=== PATIENT | female | born 1955 | race Caucasian/White ===

== ENCOUNTER 2017-05-17 12:55 | Inpatient (IN) | payer MEDICARE, OTHER ==
[~2017-05-17] VITALS: Ht 170.2 cm; Wt 72.6 kg
[~2017-05-17 12:55] MED LIST: ASPIR 8181 MG PO; ATORVASTATIN CA40 MG PO; CARVEDILOL12.5 MG PO; CYMBALTA30 MG PO; DOC-Q-LACE100 MG PO; LISINOPRIL20 MG PO; MOBIC7.5 MG PO; NEURONTIN 300300 M1 PO; NITROGLYCERIN0.4 MG SUBLING; PLAVIX 75 MG TA75 M1 PO; PREMARIN1.25 MG PO; PROTONIX40 M1 PO; ROBAXIN 750 MG750 M1 PO; TRAMADOL 50 MG50 MG PO; TRIAMTERENE/HCT1 CA1 PO; VOLTAREN GEL 1100 G1 TOP
[2017-05-17 13:00] VITALS: BP 133/61
[2017-05-17 13:18] LABS: ABSOLUTE BASOPHILS 0.2 thou/uL (0.0-0.2); ABSOLUTE EOSINOPHILS 0.1 thou/uL (0.0-0.7); ABSOLUTE MONOCYTES 1.1 thou/uL (0.0-1.2); ABSOLUTE NEUTROPHILS 8.8 thou/uL (1.6-8.1); BASOPHILS 1.3 %; EOSINOPHILS 0.6 %; HEMATOCRIT 43.3 % (37.0-47.0); HEMOGLOBIN 14.8 gm/dL (12.0-15.0); LYMPHOCYTES 40.5 %; MCH 30.4 pg (26.0-34.0); MCHC 34.2 g/dL (28.0-37.0); MONOCYTES 6.1 %; MPV 7.8 fl. (7.2-11.1); NUCLEATED RBCS 0 /100WBC; PLATELET COUNT* 360 thou/uL (150-400); POLYS 51.5 %; RBC 4.86 mil/uL (4.20-5.00); RDW-CV 16.6 % (10.5-14.5); WBC 17.2 thou/uL (4.0-11.0)
[2017-05-17 13:25] LABS: ANION GAP 9 mmol/L (7-16); BUN 21 mg/dL (7-18); CHLORIDE 102 mmol/L (98-107); CO2 27 mmol/L (21-32); CREATININE 1.3 mg/dL (0.6-1.3); GLUCOSE 92 mg/dL (70-99); POTASSIUM 3.7 mmol/L (3.5-5.1); SODIUM 138 mmol/L (136-145)
[2017-05-17 13:27] LABS: PROTIME 9.4 Seconds (9.20-11.50)
[2017-05-17] MEDS ORDERED: MEDROLDOSEPACK PO (13:29)
[2017-05-17 13:36] LABS: ALBUMIN 3.6 g/dL (3.4-5.0); ALKALINE PHOSPHATASE 110 U/L (46-116); LIPASE 386 U/L (73-393); NT-PRO BRAIN NAT PEPTIDE 205 pg/mL (<300); SGOT 17 U/L (15-37); SGPT 25 U/L (30-65); TOTAL BILIRUBIN 0.2 mg/dL (<0.1-1.0); TOTAL PROTEIN 7.7 g/dL (6.4-8.2); TROPONIN-I LEVEL <0.06 ng/mL (<0.06)
[2017-05-17 16:21] LABS: HEMOGLOBIN 13.5 gm/dL (12.0-15.0); MCH 30.1 pg (26.0-34.0); MCHC 33.8 g/dL (28.0-37.0); MPV 7.6 fl. (7.2-11.1); RBC 4.49 mil/uL (4.20-5.00); RDW-CV 16.6 % (10.5-14.5); WBC 17.7 thou/uL (4.0-11.0)
[2017-05-17 16:41] VITALS: BP 112/42
[2017-05-17 17:12] VITALS: BP 100/44
--- NOTE | 2017-05-17 17:32 | EKG ---
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
--- NOTE | 2017-05-17 18:25 | NUR ---
PT ADMITTED TO UNIT AROUND 1700 PT IS ALERT AND ORIENTED X 4 PT IS UP AD BARBARA PT IS NOT A FALL RISK, PT DENIES PAIN OR SOA PT DENIES CHEST PAIN, PT IS RA, PT IS SR ON MONITOR, STARTED HEPARIN DRIP AT 9ML/HR AND GAVE BOLUS OF 4ML, PT IS PLEASANT AND COOPERATIVE PT IS NPO, WILL CONTINUE TO MONITOR
[2017-05-17 20:05] VITALS: BP 104/48
[2017-05-18] VITALS (7 sets, daily range): BP systolic 95–138; BP diastolic 32–53
[2017-05-18 00:44] LABS: ABSOLUTE BASOPHILS 0.2 thou/uL (0.0-0.2); ABSOLUTE EOSINOPHILS 0.1 thou/uL (0.0-0.7); ABSOLUTE LYMPHOCYTES 7.3 thou/uL (0.8-5.3); ABSOLUTE NEUTROPHILS 7.9 thou/uL (1.6-8.1); BASOPHILS 1.4 %; EOSINOPHILS 0.8 %; HEMATOCRIT 41.1 % (37.0-47.0); HEMOGLOBIN 13.7 gm/dL (12.0-15.0); LYMPHOCYTES 44.1 %; MCH 29.8 pg (26.0-34.0); MCHC 33.4 g/dL (28.0-37.0); MCV 89.3 fL (80.0-100.0); MONOCYTES 5.8 %; MPV 7.7 fl. (7.2-11.1); NUCLEATED RBCS 0 /100WBC; PLATELET COUNT* 324 thou/uL (150-400); POLYS 47.9 %; RDW-CV 16.4 % (10.5-14.5); WBC 16.5 thou/uL (4.0-11.0)
[2017-05-18 02:01] LABS: CREATININE 1.3 mg/dL (0.6-1.3)
[2017-05-18 02:03] LABS: POTASSIUM 4.7 mmol/L (3.5-5.1)
--- NOTE | 2017-05-18 03:29 | NUR ---
ASSUMED CARE OF PT AT 1900. PT IS ALERT AND ORIENTED. VSS. PERRLA. NO COMPLAINTS OF PAIN. PT DENIES CHEST PAIN. PTT WAS 82.6 AT 2400. HEPARIN TURNED DOWN TO 800 UNITS PER HOUR. PT IS IN SINUS RYTHM ON THE TELEMETRY. PT IS RESTING COMFORTABLY IN BED. RESPIRATIONS ARE EVEN AND NONLABORED. WILL CONTINUE TO MONITOR PT.
--- NOTE | 2017-05-18 10:43 | NUR ---
CM ASSESSMENT: Pt is A&O. Resides at home with her . Independent with ADLs, continues to cook, clean and drive. No DME. No hx of HH or SNF. Supportive family that is invovled in POC. Pt states being ready to dc home. Cardiology consult pending. No needs anticipated at dc. Following.
[2017-05-18 13:06] LABS: URINE BILIRUBIN NEGATIVE (Negative); URINE BLOOD NEGATIVE (Negative); URINE CLARITY CLEAR; URINE COLOR YELLOW; URINE GLUCOSE-RANDOM NEGATIVE (Negative); URINE KETONES NEGATIVE (Negative); URINE LEUKOCYTES NEGATIVE (Negative); URINE NITRITE NEGATIVE (Negative); URINE PROTEIN NEGATIVE (Negative); URINE SPECIFIC GRAVITY 1.015 (1.005-1.030); URINE UROBILINOGEN 0.2 E.U./dl (0.2-1.0)
[2017-05-18] MEDS ORDERED: PERCOCET PO (16:48)
--- NOTE | 2017-05-18 17:10 | CARDNUC ---
[place] [address] CARDIAC NUCLEAR IMAGING REPORT Name: VICKY ZELAYA Room: [address] IN [facility]#: [id number] Admission: 05/17/17 Attend Phys: Jus Huertas Discharge: Date of : 55 Date of Service: 05/18/17 1709 Report #: [id number] THIS REPORT FOR: //name// APPROVED REPORT Exam: Nuclear Stress Test Indication: Chest pain Patient Location: Out-Patient Room #: 207 Stress Tech: Lily Garcia Stress Nurse: Suki Dominguez RN NM Tech:KYLE Royal Ht: 5 ft 7 in Wt: 160 lbs BSA: 1.84 m2 BMI: 25.05 Medical History Medical History: cad, pci, hyperlipidemia, htn, family hx cad Medications: lisinopril, aspirin, carvedilol, atorvastatin, heparin Allergies: nkda Cardiac Risk Factors: Age, FHX of CAD, HTN, Hyperlipidemia Previous Cardiac Procedures: pci Stress Test Details Stress Test: Pharmacologic stress testing performed using 0.4 mg of regadenoson per 5 mL given IV over 10 seconds. Reason for pharmacologic stress test: back pain. HR Resting HR: 72 bpm Max Heart Rate (APMHR): 158 bpm Max HR Achieved: 91 bpm Target HR (85% APMHR): 134 bpm % of APMHR: 57 Recovery HR: 93 bpm BP Resting BP: 100/41 mmHg Max BP: 126/55 mmHg ECG Resting ECG: Sinus Rhythm, normal EKG Stress ECG: Sinus Rhythm, normal EKG ST Change: None Arrhythmia: [place] [address] CARDIAC NUCLEAR IMAGING REPORT Name: NATHALIEVICKY L Room: [address]#: [id number] Admission: 05/17/17 Attend Phys: Jus Huertas Discharge: Date of : 55 Date of Service: 05/18/17 1709 Report #: [id number] Recovery ECG: Sinus Rhythm, normal EKG Recovery ST Change: None Recovery Arrhythmia: None Clinical Reason for Termination: Completed protocol Exercise duration: 0 min sec Exercise capacity: 1 METs Functional Aerobic Impairment 58% The patient had no significant symptoms with Lexiscan infusion. Nurse Comments pt tolerated well Stress ECG Conclusion The baseline 12 elect cardiac exam showed normal sinus rhythm with no significant ST or T-wave abnormalities. EKGs obtained during and post Lexiscan infusion showed sinus rhythm with no significant ST or T wave changes when compared to baseline. There were no stress-induced arrhythmias. NM EXAM: Myocardial Perfusion REST/STRESS Imaging Protocol: Rest Tc-99m/Stress Tc-99m 1 day Resting Data Rest SPECT myocardial perfusion imaging was performed in supine position 30 minutes following the intravenous injection of 12.0 mCi of Tc-99m Sestamibi. Time of rest injection: 1200 Time of rest imagin The images were gated to evaluate regional wall motion and calculate left ventricular ejection fraction. Administration Route: IV Pharmacologic Stress Pharmacologic stress test was performed by injecting Regadenoson 0.4 mg IV push followed by the intravenous injection of 36.0 mCi of Tc-99m Sestamibi. Time of stress injection: 1315 Time of stress imagin Administration Route: IV Gated Stress SPECT was performed 40 minutes after stress injection. The images were gated to evaluate regional wall motion and calculate [place] [address] CARDIAC NUCLEAR IMAGING REPORT Name: VICKY ZELAYA Room: [address]#: [id number] Admission: 05/17/17 Attend Phys: Jus Huertas Discharge: Date of : 55 Date of Service: 05/18/17 1709 Report #: [id number] Prone imaging was performed. Study Quality Study: Good Artifact: No artifact Study Data At rest, the left ventricular ejection fraction was 70%.. Post stress, the left ventricular ejection was 71%.. TID = 1.04. Perfusion Normal left ventricular perfusion. Wall Motion Normal left ventricular wall motion. Nuclear Conclusion ECG Findings: negative for ischemia Clinical Findings: negative for ischemia Nuclear Findings: negative for ischemia Exercise Capacity: not assessed Left Ventricular Function: normal Risk Study: low Myocardial perfusion images show no defect to suggest infarct or ischemia. Left particular systolic function was normal on gated studies. This is a low risk study. <Conclusion> The baseline 12 elect cardiac exam showed normal sinus rhythm with no significant ST or T-wave abnormalities. EKGs obtained during and post Lexiscan infusion showed sinus rhythm with no significant ST or T wave changes when compared to baseline. There were no stress-induced arrhythmias. <ELECTRONICALLY SIGNED> By: Francesco Gray MD, FACC 05/18/17 1709 08 08 Francesco Gray MD, FACC /INF
--- NOTE | 2017-05-18 17:35 | NUR ---
PT SITTING UP IN BED AT BEGINNING OF SHIFT. NPO STATUS MAINTAINED. NO C/O CHEST PAIN/PRESSURE. VS OBTAINED, LOW BLOOD PRESSURE REPORTED TO DR. SUTHERLAND. ALSO REPORTED PAIN IN LOW BACK NOT CONTROLLED BY ORDERED TRAMADOL. EDUCATED PT ABOUT NON-MEDICATION STRATEGIES FOR ADJUNCTS TO PAIN CONTROL LIKE SLOW, DEEP BREATHING AND IMAGERY. PT TO STRESS TEST AT NOON. UPON RETURN TO ROOM, PT GIVEN PRN PAIN MED FOR LOW BACK PAIN WITH PARTIAL RELIEF. DISCHARGE ORDER COMPLETE. REVIEWED DISCHARGE INSTRUCTIONS AND MEDICATION LIST WITH PT/SPOUSE. ANSWERED QUESTIONS TO THEIR SATISFACTION. DISCONTINUED NEWSPAPER SUBSCRIPTION SOLICITOR AND IV HEPARIN DRIP PER DR. SCHULER ORDER. PT IS IN POSSESSION OF ALL BELONGINGS. PT LEFT UNIT VIA WC AND NURSING STAFF. SPOUSE TO TRANSPORT HOME VIA PERSONAL CAR.
--- NOTE | 2017-05-21 08:34 | CON ---
[address] [address] CONSULTATION Name: VICKY ZELAYA Room: [address] IN M.R.#: [id number] Admission: 05/17/17 Attend Phys: Leonardo Suh Discharge: 05/18/17 Date of : 55 Report #: [id number] THIS REPORT FOR: //name// CC: Andres Huertas TYPE OF REPORT: Cardiology consultation. INDICATION: Unstable angina. HISTORY OF PRESENT ILLNESS: The patient is a very pleasant 62-year-old white female with history of coronary artery disease. She has had percutaneous coronary intervention in 2012 and 2016. In 2012, she had 3 stents placed to right coronary artery. In 2016, she had an additional stent placed to her LAD. She also has a small 3.0 x 3.5 cm thoracic aneurysm. Recent CT scan shows no change in this. She had the sudden onset of midsternal chest discomfort radiating to her neck at 12:15 today. She took some nitroglycerin with partial relief of her discomfort. She presented to the Emergency Room for further evaluation. EKG there showed sinus rhythm without acute ST elevation. There was some very subtle ST-segment depression in the anterolateral leads. Her pain was completely relieved with 2 additional sublingual nitroglycerin. There was no radiation beyond the neck. She had some mild diaphoresis without nausea or vomiting. She denied any shortness of breath. She was without other cardiac complaint. At the time of my interview, she was pain free. PAST MEDICAL HISTORY: 1. Coronary artery disease. 2. Hypertension. 3. Hyperlipidemia. 4. Thoracic aneurysm as outlined above. PAST SURGICAL HISTORY: 1. Appendectomy. 2. Cholecystectomy. 3. Percutaneous coronary intervention as outlined above. 4. Hysterectomy. 5. Tonsillectomy. CURRENT MEDICATIONS: Aspirin 81 mg daily, Lipitor 40 mg at bedtime, carvedilol 12.5 mg 1/2 tablet p.o. b.i.d., Voltaren gel p.r.n., Colace p.r.n., Cymbalta 30 mg daily, Premarin every other day, gabapentin 300 mg 2 tablets t.i.d., Maxzide 37.5/25 one tablet daily, lisinopril 20 mg daily, meloxicam 7.5 mg daily, Robaxin 750 mg q.i.d. p.r.n., Nitrostat p.r.n., Protonix 40 mg daily and tramadol [address] [place] [address] CONSULTATION Name: NATHALIEVICKY Janelle Room: [address]#: [id number] Admission: 05/17/17 Attend Phys: Leonardo Suh Discharge: 05/18/17 Date of : 55 Report #: [id number] FAMILY HISTORY: The patient's father had heart attack in his 50s. SOCIAL HISTORY: The patient quit smoking in 2011. REVIEW OF SYSTEMS: A 14-point review of systems is positive for chest discomfort, right lower extremity edema, seasonal allergies, arthritis without connective tissue disease, glasses without acute visual loss and dentures. Otherwise, 14-point review of systems was unremarkable. PHYSICAL EXAMINATION: VITAL SIGNS: Stable. Blood pressure was 142/82 and pulse was 62 and regular. GENERAL: This is a pleasant lady in no distress. Mood and affect appropriate. HEENT: The patient is wearing glasses. Extraocular muscles intact. Mucous membranes moist. NECK: Shows no jugular venous distention. There are no carotid bruits. CHEST: Reveals clear lung park without wheezes, rales or rhonchi. CARDIOVASCULAR: Reveals a regular rhythm with a grade 1/6 soft systolic ejection murmur. ABDOMEN: Reveals normal bowel sounds. The abdomen is soft and nontender. EXTREMITIES: Shows no edema. Peripheral pulses are 2+ and easily palpable. SKIN: Warm and dry. RADIOLOGICAL DATA: A 12-lead EKG shows sinus rhythm with some subtle ST-segment depression in anterolateral leads. LABORATORY DATA: Initial troponin is less than 0.06. IMPRESSION AND RECOMMENDATIONS: 1. Chest pain consistent with unstable angina. The patient is being admitted. She has received an aspirin already. We will continue beta blockers and start heparin drip. We will continue serial troponins and consider noninvasive versus invasive evaluation pending those results. 2. Coronary artery disease. The patient is on a good medical regimen outlined above, please continue. 3. Thoracic aneurysm with recent CTA of the chest shows no significant change in size. This is considered stable. 4. Hyperlipidemia. Continue atorvastatin at current dose. <ELECTRONICALLY SIGNED> By: Francesco Gray MD, FACC 05/21/17 0834 1507 [id number] Gray MD, FACC /nt
[2017-06-20] MEDS ORDERED: NORCO 7.5-3251 EACH PO (09:02)
== END 2017-05-18 17:35 | disposition home or self-care (01) | DRG 303 ==
LOC: M.ERS 12:55 → M.TBA-ER 14:05 → M.2W 14:05
PROVIDERS: Emergency Medicine; Internal Medicine Cardiovascular Disease; ADMIT Internal Medicine
DX: I25.110 Atherosclerotic heart disease of native coronary artery with unstable angina pectoris (principal); I10 Essential (primary) hypertension; D72.829 Elevated white blood cell count, unspecified; G89.29 Other chronic pain; M54.9 Dorsalgia, unspecified; K21.9 Gastro-esophageal reflux disease without esophagitis; F32.9 Major depressive disorder, single episode, unspecified; E78.5 Hyperlipidemia, unspecified; I71.2 Thoracic aortic aneurysm, without rupture; Z79.899 Other long term (current) drug therapy; Z95.5 Presence of coronary angioplasty implant and graft; I25.2 Old myocardial infarction; Z90.710 Acquired absence of both cervix and uterus; Z90.49 Acquired absence of other specified parts of digestive tract; Z79.82 Long term (current) use of aspirin

== ENCOUNTER → 2017-06-20 | Outpatient (CLI) | payer MEDICARE, OTHER ==
[~2017-06-20] MED LIST changes: +LYRICA 75 MG CA75 MG PO; +MEDROLDOSEPACK PO; +NORCO 7.5-3251 EACH PO; +PERCOCET PO
--- NOTE | 2017-06-27 07:32 | PAINCON ---
[address] [address] PAIN MANAGEMENT CONSULTATION Name: VICKY ZELAYA Room: [facility]#: [id number] Admission: 06/20/17 Attend Phys: Leonardo French Discharge: Date of : 55 Report #: [id number] THIS REPORT FOR: //name// CC: Andres Boles The patient is a 62-year-old female, prior seen in the pain clinic for symptomatic lumbar radiculopathy and SI mediated pain. Last visit was 03/14/2017. We had done bilateral SI joint injections in 07/2016 and again in March. Last visit, we did analyze the spinal cord stimulator, which is working well. She returns to the pain clinic today with a new complaint. She notes the bilateral SI joint injections afforded about 70% ongoing relief. She was doing well until May. She was in the hospital for an unrelated issue, exacerbated back pain. She is now having some paresthesia down the left leg to the foot. Spinal cord stimulator initially implanted back in 2014 has been helpful for her radicular pain. New pain seems to be eclipsing the generator. PHYSICAL EXAMINATION: Does show 62-year-old female, BMI is 24.9 kilograms per meter squared. Blood pressure 141/92, pulse is 80 and respirations are 18. She is afebrile. Subjective pain score is 8 on a VAS. Rises from chair using armrest. Antalgic gait. Lumbar flexion is good. Tender from about T3 down to about L5 in the paravertebral muscles; however, SI joints are only nominally involved at this point. Positive straight leg raise bilaterally with decreased strength to plantar flexion. DIAGNOSTIC STUDIES: We looked at the CT obtained on 07/04/2016 noting degenerative disk disease worse at L5-S1 with a disk extrusion resulting in bilateral neural foraminal narrowing. ASSESSMENT: Chronic sacroiliac joint dysfunction by clinical exam and history, spinal cord stimulator ([employer]) affording some good ongoing relief, but now with acute lumbar radicular pain. RECOMMENDATION: Lumbar epidural injection under fluoroscopy at L5-S1 today. Follow up in 2 weeks for reevaluation and consideration for SI joint injection if indicated clinically. ASSESSMENT: Symptomatic lumbar radiculopathy. PROCEDURE: Lumbar epidural injection under fluoroscopy. PROCEDURE NOTE: After both written and informed consent to include risk of spinal cord damage, increased pain, weakness and dural puncture, the patient was taken to the fluoroscopy suite, placed in the prone position. After sterile prep and drape, a skin wheal with lidocaine was raised. A 22-gauge epidural Tuohy needle was inserted in the midline at L5-S1 with good loss to resistance. Negative aspiration for cerebrospinal fluid or blood was noted. Then 1 [place] [address] PAIN MANAGEMENT CONSULTATION Name: VICKY ZELAYA Room: [facility] Hinkle#: [id number] Admission: 06/20/17 Attend Phys: Leonardo French Discharge: Date of : 55 Report #: [id number] Omnipaque under biplanar fluoroscopy showed good spread within the epidural space. This was followed with 80 mg of triamcinolone plus 1 mL of 1.5% preservative-free Xylocaine, 0.5 mL Xylocaine was then injected to flush the needle; it was removed. The patient was monitored for an appropriate period of time and discharged in good and stable condition. <ELECTRONICALLY SIGNED> By: Lg Boles DO 06/27/17 0732 1257 2037Lg Boles DO /nt
== END | disposition home or self-care (01) ==
LOC: M.PC 01:29
DX: M54.16 Radiculopathy, lumbar region (principal); M53.3 Sacrococcygeal disorders, not elsewhere classified; Z98.890 Other specified postprocedural states; Z79.82 Long term (current) use of aspirin; Z79.899 Other long term (current) drug therapy; Z79.891 Long term (current) use of opiate analgesic

== ENCOUNTER → 2017-07-11 | Outpatient (CLI) | payer MEDICARE, OTHER ==
--- NOTE | 2017-07-18 07:59 | PAINCON ---
[address] [address] PAIN MANAGEMENT CONSULTATION Name: VICKY ZELAYA [id number] Admission: 07/11/17 Attend Phys: Leonardo French Discharge: Date of : 55 Report #: [id number] THIS REPORT FOR: //name// CC: Andres Boles HISTORY OF PRESENT ILLNESS: The patient is a 62-year-old female, prior seen for lumbar radiculopathy, lumbar spondylosis without radiculopathy, M47.816 and M47.817 and SI joint dysfunction. Last visit on 06/20/2017, we proceeded with epidural injection under fluoroscopy at L5-S1. She does have a spinal cord stimulator in place. He returns to pain clinic today. She notes near 100% relief in the radicular component of pain, leg pain is absent though she still has pain across the low back radiating into the buttocks and hips in the SI area. PHYSICAL EXAMINATION: VITAL SIGNS: Does show a 5 feet 7 female, 160 pounds and BMI is 25.1 kilograms per meter squared. Blood pressure 133/60, pulse 71, respirations 16. MUSCULOSKELETAL: Rises from the chair using armrest. Gait is modestly antalgic. Very tender over the SI joints, grossly positive Sukhdeep test bilaterally. Lower extremity strength, however, is preserved. ASSESSMENT: Symptomatic sacroiliac joint dysfunction by clinical exam and history, history of lumbar radiculopathy by clinical exam and excellent improvement following last visits, epidural injection, component of the lumbar spondylosis. RECOMMENDATION: Bilateral SI joint injection under fluoroscopy today. PROCEDURE NOTE: After written and informed consent was obtained including risk of infection, nerve trauma, increased pain and weakness, the patient wishes to proceed. The patient was taken to the fluoroscopy suite, placed in the prone position. The sacroiliac joint was visualized using the C-arm, turned in an oblique fashion to align the joint. The skin overlying the area was cleansed with ChloraPrep. Skin wheal with Xylocaine was raised. A 22 gauge spinal needle was inserted into the inferior aspect of the joint. A low volume extension tubing was then attached to the needle after the stylet was removed. Negative aspiration was accomplished. A 1 mL of Omnipaque was injected which showed spread within the SI joint. 40 mg triamcinolone plus 2 mL of 0.5% preservative-free bupivacaine was injected into the joint. Needle was removed. Attention was then turned to the contralateral joint which was treated in an identical fashion. After both needles were removed the prep was washed off. Two Band-Aids were applied over the puncture sites. The patient was allowed to ambulate to the recovery room, monitored for an appropriate period of time, discharged in [place] [address] PAIN MANAGEMENT CONSULTATION Name: NATHALIEVICKY VELAZQUEZ Janelle [facility] [id number] Admission: 07/11/17 Attend Phys: Leonardo French Discharge: Date of : 55 Report #: [id number] The patient is discharged in good stable condition. I was pleased to note her pain was a 7 on a 10 on admission, it was absent on discharge. We will see the patient back simply as needed. Did recommend she continue with core strengthening exercises and medication as prescribed by her primary treating physician. <ELECTRONICALLY SIGNED> By: Lg Boles DO 07/18/17 0759 1351 2022Lg Boles DO /nt
== END | disposition home or self-care (01) ==
LOC: M.PC 04:54
DX: M53.3 Sacrococcygeal disorders, not elsewhere classified (principal); M54.16 Radiculopathy, lumbar region; G89.29 Other chronic pain; Z79.82 Long term (current) use of aspirin; Z79.899 Other long term (current) drug therapy; Z98.890 Other specified postprocedural states

== ENCOUNTER → 2017-08-08 | Outpatient (CLI) | payer MEDICARE, OTHER ==
--- NOTE | 2017-08-13 08:02 | PAINCON ---
[facility] [address] [place] [address] PAIN MANAGEMENT CONSULTATION Name: VICKY ZELAYA [id number] Admission: 08/08/17 Attend Phys: Leonardo French Discharge: Date of : 55 Report #: [id number] THIS REPORT FOR: //name// CC: Parish Boles DATE OF SERVICE: 08/08/2017 PAIN CLINIC NOTE HISTORY OF PRESENT ILLNESS: The patient is a pleasant 62-year-old female typically treated for SI mediated pain, lumbosacral spondylosis without myelopathy. She has a spinal cord stimulator in place for ongoing radicular pain. Last seen in pain clinic on 07/11/2017. We did bilateral SI joint injections with excellent improvement of pain. She did well until she had company at [employer], increasing activity. She developed acute recurrence of significant axial back pain, SI area, exacerbated with standing, walking and bending. Reviewing her history, she had bilateral SI joint injections little greater than a year ago on 08/02/2016. Repeated in 03/2017 and again this last visit on 07/11/2017. PHYSICAL EXAMINATION: Today does show tenderness over the SI joints. Positive Sukhdeep test, positive Gaenslen's, positive distraction. Lower extremity strength is symmetric. Straight leg raise is negative. ASSESSMENT: Symptomatic sacroiliac joint dysfunction by clinical exam and history, lumbosacral spondylosis without myelopathy. RECOMMENDATIONS: Discussed with the patient today about therapeutic options. We have elected to repeat SI joint injection under fluoroscopy today. The patient was referred to Dr. Parish Senior for consideration for percutaneous SI fusion. PROCEDURE: Bilateral SI joint injection under fluoroscopy. PROCEDURE NOTE: After written and informed consent was obtained including risk of infection, nerve trauma, increased pain and weakness, the patient wishes to proceed. The patient was taken to the fluoroscopy suite, placed in the prone position. The sacroiliac joint was visualized using the C-arm, turned in an oblique fashion to align the joint. The skin overlying the area was cleansed with ChloraPrep. Skin wheal with Xylocaine was raised. A 22 gauge spinal needle was inserted into the inferior aspect of the joint. A low volume extension tubing was then attached to the needle after the stylet was removed. Negative aspiration was accomplished. A 1 mL of Omnipaque [place] [address] PAIN MANAGEMENT CONSULTATION Name: VICKY ZELAYA Room: [facility]#: [id number] Admission: 08/08/17 Attend Phys: Leonardo French Discharge: Date of : 55 Report #: [id number] showed spread within the SI joint. 40 mg triamcinolone plus 2 mL of 0.5% preservative-free bupivacaine was injected into the joint. Needle was removed. Attention was then turned to the contralateral joint which was treated in an identical fashion. After both needles were removed the prep was washed off. Two Band-Aids were applied over the puncture sites. The patient was allowed to ambulate to the recovery room, monitored for an appropriate period of time, discharged in good and stable condition. <ELECTRONICALLY SIGNED> By: Lg Boles DO 08/13/17 0802 1455 1811[facility] Centerann Boles DO /nt
== END | disposition home or self-care (01) ==
LOC: M.PC 00:52
DX: M53.3 Sacrococcygeal disorders, not elsewhere classified (principal); G89.29 Other chronic pain; M47.817 Spondylosis without myelopathy or radiculopathy, lumbosacral region; Z79.82 Long term (current) use of aspirin; Z79.899 Other long term (current) drug therapy; Z98.890 Other specified postprocedural states

== ENCOUNTER 2017-10-05 18:12 | Emergency (ER) | payer MEDICARE, OTHER ==
[~2017-10-05] VITALS: Ht 170.2 cm; Wt 72.6 kg
[~2017-10-05 18:12] MED LIST changes: -LYRICA 75 MG CA75 MG PO
[2017-10-05 19:41] LABS: ABSOLUTE BASOPHILS 0.1 thou/uL (0.0-0.2); ABSOLUTE EOSINOPHILS 0.5 thou/uL (0.0-0.7); ABSOLUTE LYMPHOCYTES 3.8 thou/uL (0.8-5.3); ABSOLUTE MONOCYTES 0.9 thou/uL (0.0-1.2); BASOPHILS 1.2 %; EOSINOPHILS 4.7 %; HEMATOCRIT 37.3 % (37.0-47.0); HEMOGLOBIN 12.6 gm/dL (12.0-15.0); LYMPHOCYTES 33.8 %; MCH 30.6 pg (26.0-34.0); MCHC 33.7 g/dL (28.0-37.0); MCV 90.7 fL (80.0-100.0); MONOCYTES 7.8 %; MPV 7.6 fl. (7.2-11.1); NUCLEATED RBCS 0 /100WBC; PLATELET COUNT* 351 thou/uL (150-400); POLYS 52.5 %; RBC 4.11 mil/uL (4.20-5.00); RDW-CV 15.9 % (10.5-14.5); WBC 11.4 thou/uL (4.0-11.0)
[2017-10-05 19:59] LABS: CREATININE 1.1 mg/dL (0.6-1.3); POTASSIUM 3.9 mmol/L (3.5-5.1)
[2017-10-05 20:08] LABS: ALBUMIN 3.4 g/dL (3.4-5.0); TOTAL BILIRUBIN 0.4 mg/dL (<0.1-1.0); TOTAL PROTEIN 7.8 g/dL (6.4-8.2)
[2017-10-05] MEDS ORDERED: MEDROLDOSEPACK PO (21:47)
[2017-10-05] MEDS ORDERED: LYRICA 75 MG CA75 MG PO (21:55)
[2017-10-05 22:32] VITALS: BP 108/39
== END 2017-10-05 22:33 | disposition home or self-care (01) ==
LOC: M.ERS 18:12
PROVIDERS: Nurse Practitioner Family
DX: M79.661 Pain in right lower leg (principal); R60.9 Edema, unspecified; I10 Essential (primary) hypertension; I21.9 Acute myocardial infarction, unspecified; Z90.49 Acquired absence of other specified parts of digestive tract; Z90.710 Acquired absence of both cervix and uterus; Z95.5 Presence of coronary angioplasty implant and graft

== ENCOUNTER → 2018-03-14 | Outpatient (CLI) | payer MEDICARE, OTHER ==
[~2018-03-14] MED LIST changes: +LYRICA 75 MG CA75 MG PO
[2018-03-14 12:11] LABS: CREATININE 1.1 mg/dL (0.6-1.3)
== END ==
LOC: M.LAB 11:49 → M.CT 13:00
PROVIDERS: Internal Medicine Cardiovascular Disease
DX: Z01.818 Encounter for other preprocedural examination (principal); Z12.31 Encounter for screening mammogram for malignant neoplasm of breast; I77.810 Thoracic aortic ectasia

== ENCOUNTER 2018-09-15 16:01 | Inpatient (IN) | payer MEDICARE, OTHER ==
[~2018-09-15] VITALS: Ht 167.6 cm; Wt 79.4 kg
--- NOTE | ~2018-09-15 | EKG ---
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
[2018-09-15 16:03] VITALS: BP 113/74
[2018-09-15 16:31] LABS: ABSOLUTE BASOPHILS 0.2 thou/uL (0.0-0.2); ABSOLUTE EOSINOPHILS 0.4 thou/uL (0.0-0.7); ABSOLUTE LYMPHOCYTES 2.9 thou/uL (0.8-5.3); ABSOLUTE NEUTROPHILS 7.1 thou/uL (1.6-8.1); BASOPHILS 1.3 %; EOSINOPHILS 3.4 %; HEMATOCRIT 40.1 % (37.0-47.0); HEMOGLOBIN 13.5 gm/dL (12.0-15.0); MCHC 33.7 g/dL (28.0-37.0); MCV 89.2 fL (80.0-100.0); MONOCYTES 8.7 %; MPV 8.3 fl. (7.2-11.1); NUCLEATED RBCS 0 /100WBC; PLATELET COUNT* 235 thou/uL (150-400); POLYS 61.6 %; RDW-CV 15.4 % (10.5-14.5); WBC 11.6 thou/uL (4.0-11.0)
[2018-09-15 16:38] LABS: ANION GAP 11 mmol/L (7-16); BUN 21 mg/dL (7-18); CALCIUM 8.8 mg/dL (8.5-10.1); CHLORIDE 101 mmol/L (98-107); CO2 25 mmol/L (21-32); CREATININE 1.8 mg/dL (0.6-1.3); GLUCOSE 107 mg/dL (70-99); POTASSIUM 4.2 mmol/L (3.5-5.1); SODIUM 137 mmol/L (136-145)
[2018-09-15 16:41] LABS: APTT 27.4 Seconds (25.0-31.3); INR 0.9; PROTIME 9.6 Seconds (9.20-11.50)
[2018-09-15 16:48] LABS: ALBUMIN 3.2 g/dL (3.4-5.0); ALKALINE PHOSPHATASE 105 U/L (46-116); LIPASE 109 U/L (73-393); NT-PRO BRAIN NAT PEPTIDE 216 pg/mL (<300); SGOT 21 U/L (15-37); SGPT 21 U/L (30-65); TOTAL BILIRUBIN 0.4 mg/dL (<0.1-1.0); TOTAL PROTEIN 7.4 g/dL (6.4-8.2); TROPONIN-I LEVEL <0.06 ng/mL (<0.06)
[2018-09-15 17:21] VITALS: BP 106/43
[2018-09-15 17:56] VITALS: BP 122/42
--- NOTE | 2018-09-15 18:41 | NUR ---
PT TO UNIT AT APPROX 1720. ALERT, ORIENTED AND ALL VSS ON 2L. TELE TRACKING NSR. DENIES CP, SOA. PT STATES SHE GI BUG WITH N/V/D STARTING SUNDAY, BUT DOES NOT RECALL ANY CP UNTIL THIS AFTERNOON AFTER GI UPSET HAD RESOLVED. EDUCATED ON SAFETY AND PLAN OF CARE. PLEASE SEE ASSESSMENT FOR ADDITIONAL INFORMATION. WILL CONT TO MONITOR
[2018-09-15 20:00] VITALS: BP 105/45
--- NOTE | 2018-09-15 20:00 | NUR ---
RECEIVED REPORT AND ASSUMED CARE OF PT, ASSESSMENT COMPLETED. PT DENIES CP OR SOB. HAVING OCC MOIST COUGH WITHOUT SECRETIONS. DENIES ANY FURTHER DIARRHEA TODAY. TELEMETRY ON SHOWING SR. WILL CONT TO MONITOR AND ASSIST NEEDED.
[2018-09-16] VITALS (17 sets, daily range): BP systolic 100–171; BP diastolic 39–84
--- NOTE | 2018-09-16 06:00 | NUR ---
SLEPT WELL TONIGHT. NPO SINCE [place] FOR POSS TEST THIS AM. DENIES CHEST PAIN OR SOB. INDEPENDENT BRP WITH STEADY GAIT. TELEMETRY CONT TO SHOW SR. HS GOALS OF REST AND SAFETY ACHIEVED. HOURLY ROUNDING OBSERVED.
--- NOTE | 2018-09-16 08:00 | NUR ---
ASSUMED PT. CARE AND RECEIVED REPORT AT 0730. PT A/OX4, VSS, MONITOR ON TRACING SR. PT. DENIES CURRENT CP/SOB/NAUSEA. ON RA @ 96%. FULL ASSESSMENT COMPLETED, REFER TO CHARTING. PT NPO FOR CV CONSULT. IVF'S @ 100ML/HR. CALL LIGHT IN REACH, WILL CONTINUE WITH PLAN OF CARE.
[2018-09-16 10:43] LABS: CALCIUM 8.2 mg/dL (8.5-10.1); CREATININE 1.1 mg/dL (0.6-1.3); MAGNESIUM 1.7 mg/dL (1.8-2.4); POTASSIUM 4.4 mmol/L (3.5-5.1)
--- NOTE | 2018-09-16 11:41 | EKG ---
[place] [address] ELECTROCARDIOGRAM REPORT Name: VICKY ZELAYA Room: [address] ADM IN .R.#: [id number] Admission: 09/15/18 Attend Phys: Amrita Hebert MD Discharge: Date of : 55 Report #: [id number] THIS REPORT FOR: //name// [facility] ED Test Date: 2018-09-15 Test Time: 16:05:08 Pat Name: VICKY HERNANDEZWCETT Department: Room: [facility] Gender: F Compliance Paralegal: AME : 1955 Requested By: Mireya Ga Order Number: [id number] MD: Isrrael Amezcua Measurements Intervals [place] Rate: 90 P: 81 [place]: 143 QRS: 81 QRSD: 86 T: 114 QT: 351 QTc: 430 Interpretive Statements Sinus rhythm Borderline right axis deviation Abnormal T, consider ischemia, lateral leads Baseline wander in lead(s) I,III,aVR,aVL,aVF,V6 Compared to ECG 05/17/2017 13:00:40 artifact noted Electronically Signed On 09-16-2018 11:40:59 CDT by Isrrael Amezcua [email or web address] <ELECTRONICALLY SIGNED> By: Isrrael Amezcua MD, [facility] 09/16/18 1140 1605 1605 Isrrael Amezcua MD, [facility] /EPI
--- NOTE | 2018-09-16 13:33 | CARD ---
[address] [address] CARDIAC CATH REPORT Name: VICKY ZELAYA Janelle Room: 209[facility] IN [facility].#: [id number] Admission: 09/15/18 Attend Phys: Amrita Hebert MD Discharge: Date of : 55 Report #: [id number] THIS REPORT FOR: //name// APPROVED REPORT Study performed: 09/16/2018 10:00:03 Patient Details Patient Status: In-Patient Room #: 209 The patient is a 63 year-old female Event Personnel Isrrael Amezcua Manager Heavy Duty, dAa Clifton RN Pail Tester, Griffin Thao (R) Monitor, Jens Hickey [employer]ER Scrub Procedures Performed Left Heart Cath w/or w/o Coronaries Indication Atypical chest pain Risk Factors Hypercholesterolemia, Hypertension Previous Procedures/Diagnoses Previous PCI, Previous IL Procedure Narrative The patient was brought electively to the Cardiac Catheterization Laboratory and was prepped and draped in a sterile manner. The right femoral was infiltrated with 1% Lidocaine subcutaneous anesthesia. A 6fr Ultimum Sheath sheath was inserted into the right femoral artery. Coronary angiography was performed using coronary diagnostic catheters. The right coronary system was accessed and visualized with a Diagnostic JR4 5fr catheter. The left coronary system was accessed and visualized with a Diagnostic JL4 5fr catheter. The left ventricle was accessed and visualized with a Diagnostic PC: Angled Pig 5fr catheter. Left ventricular/Aortic Valve gradient assessed via catheter pullback. Left ventriculogram was performed in NYE projection. Closure device was deployed with a 6 Fr Mynx 6Fr/7Fr. The patient tolerated the procedure well and there were no complications associated with the procedure. There was no hematoma. Procedure attempted from the right radial artery, but unable to locate artery with needle. Dressing applied and procedure performed from the [place] [address] CARDIAC CATH REPORT Name: VICKY ZELAYA Room: [address] IN ..#: [id number] Admission: 09/15/18 Attend Phys: Amrita Hebert MD Discharge: Date of : 55 Report #: [id number] Intraoperative Conscious Sedation Sedation start time: 10:43 Case end Time: 11:18 Fentanyl 50 mcg Versed 2 mg Fluoro Time: 2.5 minutes Dose: DAP 00125 cGycm2 441 mGy Contrast Type and Amount: Visipaque 80 ml Coronary Angiography The patient's coronary anatomy is right dominant. Diagnostic Cath Left Main 0% stenosis LAD stent in mid lad with 0% stenosis Circumflex 0% stenosis Right Coronary stents in proximal and mid rca with 0% stenosis. 30% stenosis noted between the 2 stents Left Ventriculography The left ventricle is normal in size with normal contractility. The left ventricular ejection fraction is estimated to be 60-65%. Left ventricular wall motion abnormalities are not present. There is no mitral insufficiency. Hemodynamics The aortic pressure is 162/56 mmHg with a mean of 53 mmHg. The left ventricular pressure is 178/10 mmHg with a mean of mmHg. The left ventricular end diastolic pressure is 18 mmHg. There was no gradient across the aortic valve upon pullback. Pullback from the left ventricle to the aorta revealed no gradient across the aortic valve. Conclusion 1. no restenosis noted within stents in the mid lad and rca 2. LVEF 60% 3. suspect noncardiac chest pain Recommendations Aggressive Medical Therapy <ELECTRONICALLY SIGNED> By: Isrrael Amezcua MD, FACC 09/16/18 1333 1333 1333Dcyndy Amezcua MD, FACC /INF
[2018-09-16 14:27] LABS: INFLUENZA A ANTIGEN None Detected (None Detect); INFLUENZA B ANTIGEN None Detected (None Detect)
--- NOTE | 2018-09-16 14:29 | NUR ---
Pt is A&O. Resides at home with her . Independent. No DME. No hx of HH or SNF. Pt had cath today. Following.
--- NOTE | 2018-09-16 20:00 | NUR ---
RECEIVED REPORT AND ASSUMED CARE OF PT, ASSESSMENT COMPLETED. PT SITTING UP IN CHAIR VISITING WITH . RT GROIN SITE INTACT, NO HEMATOMA OR DRAINAGE. OPSITE AND GAUZE DRY AND INTACT. DRSG WITH BRUISING NOTED TO RT WRIST AREA. TELEMETRY ON SHOWING SR. WILL CONT TO MONITOR AND ASSIST NEEDED.
[2018-09-17] VITALS: BP 126/54
[2018-09-17 04:00] VITALS: BP 149/59
[2018-09-17 05:43] LABS: HEMATOCRIT 36.6 % (37.0-47.0); HEMOGLOBIN 12.1 gm/dL (12.0-15.0); MCH 29.5 pg (26.0-34.0); MCV 89.5 fL (80.0-100.0); MPV 8.7 fl. (7.2-11.1); NUCLEATED RBCS 0 /100WBC; PLATELET COUNT* 217 thou/uL (150-400); RBC 4.09 mil/uL (4.20-5.00); RDW-CV 15.3 % (10.5-14.5); WBC 11.9 thou/uL (4.0-11.0)
[2018-09-17 05:47] LABS: ALBUMIN 2.8 g/dL (3.4-5.0); CALCIUM 8.5 mg/dL (8.5-10.1); CREATININE 1.2 mg/dL (0.6-1.3); POTASSIUM 4.4 mmol/L (3.5-5.1); TOTAL BILIRUBIN 0.2 mg/dL (<0.1-1.0); TOTAL PROTEIN 6.6 g/dL (6.4-8.2); TROPONIN-I LEVEL 0.27 ng/mL (<0.06)
--- NOTE | 2018-09-17 06:28 | NUR ---
SLEPT WELL TONIGHT. RT GROIN REMAINS WITHOUT INCIDENT. DENIES CP. DOES HAVE OCC COUGH. NO CHANGE IN ASSESSMENT. HS GOALS OF REST AND SAFETY ACHIEVED. HOURLY ROUNDING OBSERVED.
[2018-09-17 06:43] LABS: ABSOLUTE LYMPHOCYTES 1.1 thou/uL (0.8-5.3); ABSOLUTE NEUTROPHILS 10.8 thou/uL (1.6-8.1); PLATELET ESTIMATE ADEQUATE
--- NOTE | 2018-09-17 10:30 | NUR ---
RECEIVED REPORT AND ASSUMED CARE OF PT AT 0730.PT IS A/OX4.TRACING SR ON THE MONITOR.IV PATENT AND SALINE LOCKED.UP AD BARBARA.RIGHT GROIN CATH CLEAN DRY AND INTACT.VQ SCAN COMPLETED TODAY.NORMAL REPORT.PLAN DISCHARGE TODAY.WILL CONTINUE TO MONTR.
[2018-09-17 12:45] VITALS: BP 111/48
[2018-09-17] MEDS ORDERED: PREDNISONE 10 M10 MG PO (13:11)
[2018-09-17] MEDS ORDERED: KEFLEX500 M1 PO (13:11)
[2018-09-17 14:32] VITALS: BP 111/48
--- NOTE | 2018-09-18 16:40 | CON ---
[address] [address] CONSULTATION Name: NATHALIEVICKY L Room: [address]#: [id number] Admission: 09/15/18 Attend Phys: Amrita Hebert MD Discharge: 09/17/18 Date of : 55 Report #: [id number] THIS REPORT FOR: //name// CC: Amrita Lugo MD DATE OF SERVICE: 09/16/2018 CARDIOLOGY CONSULTATION HISTORY OF PRESENT ILLNESS: The patient is a 63-year-old white female who I was asked to see in the hospital today after she complained of chest pain. The patient has an extensive past medical history. She apparently had 3 coronary artery stents placed in her right coronary artery in [place], [place] in 2011. She then had a stent placed in her LAD here at [place] in 2015. Stress test in 2016 showed no significant angina. She has done well since that time. She actually saw my partner, Dr. Gray last March when she was doing well. She has occasional swelling of her feet and Doppler study showed no DVT. She was referred to the vein clinic and had vein stripping performed last week. She states she is not very active, stays busy working at home. She was doing well until yesterday, she had an episode of sharp chest pain radiating to her jaw. She denied any shortness of breath, diaphoresis or nausea. She took up to 3 nitroglycerin and the pain improved. She came to the hospital and was admitted. She does note that last week, she had an episode of abdominal discomfort and vomited. She noticed some dark stool. She has had no fever or cough. She denies exertional dyspnea. She notes occasional skipped heartbeat, but no syncope. PAST MEDICAL HISTORY: She has had previous back surgery, she has had a neurostimulator in place. She has had an appendectomy, hysterectomy, cholecystectomy, hypertension and hyperlipidemia. MEDICATIONS: Consist of aspirin, Lipitor, carvedilol, Neurontin, lisinopril, Protonix, Maxzide. ALLERGIES: SHE HAS PREVIOUS INTOLERANCE TO [place], WHICH MADE HER SHORT OF BREATH. FAMILY HISTORY: Negative for heart disease. SOCIAL HISTORY: She is . She and her live in [place]. She no longer works. Quit smoking in 2011. No alcohol abuse. REVIEW OF SYSTEMS: She has had no history of stroke, asthma, peptic ulcer disease, liver disease, kidney disease, cancer, psychiatric [place] [address] CONSULTATION Name: VICKY ZELAYA Room: [address]#: [id number] Admission: 09/15/18 Attend Phys: Amrita Hebert MD Discharge: 09/17/18 Date of : 55 Report #: [id number] skin condition. PHYSICAL EXAMINATION: GENERAL: Revealed a middle-aged female, appeared in no distress. VITAL SIGNS: She had a blood pressure of 120/60, pulse 70. She is afebrile. HEENT: She was anicteric, conjunctivae pink. Mucous members moist. NECK: Neck veins are not distended. No carotid bruits. Neck supple. CHEST: Clear to auscultation. CARDIOVASCULAR: Regular rate and rhythm. ABDOMEN: Soft. EXTREMITIES: Had no edema. SKIN: Warm, dry. NEUROLOGIC: Nonfocal. Previous vascular workup showed minimal dilatation of the abdominal aorta at 3.4 cm. Previous carotid Doppler study showed mild stenosis. Her ECG showed a sinus rhythm, nonspecific T-wave change. Her portable chest x-ray showed normal heart size, clear lung park. LABORATORY DATA: Sodium 137, BUN 21, creatinine 1.8. Her troponins were all 0.06. White blood cell count 11.6, hemoglobin 13.5. IMPRESSION AND RECOMMENDATIONS: 1. Unstable angina. Recommend cardiac catheterization. 2. Hypertension. The patient is on a beta corina and TRAY inhibitor. 3. Hyperlipidemia. The patient is on a statin drug. 4. Previous tobacco abuse. 5. Small abdominal aortic aneurysm. 6. Carotid stenosis, asymptomatic. 7. Chronic back pain. The patient has a neurostimulator in place. 8. History of edema. History of venous insufficiency. Previous vein stripping. <ELECTRONICALLY SIGNED> By: Isrrael Amezcua MD, [facility] 09/18/18 1640 0839 2046Dagui Amezcua MD, [facility] /nt
== END 2018-09-17 15:26 | disposition home or self-care (01) | DRG 286 ==
LOC: M.ERS 16:01 → M.2W 16:29 → M.TBA-ER 16:29 → M.2W 17:32
PROVIDERS: Internal Medicine; Personal Emergency Response Attendant; ADMIT Internal Medicine
PROC: B2151ZZ Fluoroscopy of Left Heart using Low Osmolar Contrast (ICD-10-PCS; principal; 2018-09-16)
PROC: 4A023N7 Measurement of Cardiac Sampling and Pressure, Left Heart, Percutaneous Approach (ICD-10-PCS; principal; 2018-09-16)
PROC: B2111ZZ Fluoroscopy of Multiple Coronary Arteries using Low Osmolar Contrast (ICD-10-PCS; principal; 2018-09-16)
DX: I25.110 Atherosclerotic heart disease of native coronary artery with unstable angina pectoris (principal); N17.0 Acute kidney failure with tubular necrosis; I10 Essential (primary) hypertension; E78.5 Hyperlipidemia, unspecified; I71.4 Abdominal aortic aneurysm, without rupture; M54.9 Dorsalgia, unspecified; G89.29 Other chronic pain; I25.2 Old myocardial infarction; Z95.5 Presence of coronary angioplasty implant and graft; Z87.891 Personal history of nicotine dependence; Z90.49 Acquired absence of other specified parts of digestive tract; Z90.710 Acquired absence of both cervix and uterus; Z98.1 Arthrodesis status; Z79.82 Long term (current) use of aspirin; Z79.899 Other long term (current) drug therapy; Z88.8 Allergy status to other drugs, medicaments and biological substances

== ENCOUNTER 2018-09-23 11:07 | Emergency (ER) | payer MEDICARE, OTHER ==
[~2018-09-23] VITALS: Ht 170.2 cm; Wt 77.1 kg
[~2018-09-23 11:07] MED LIST changes: +KEFLEX500 M1 PO; +PREDNISONE 10 M10 MG PO
[2018-09-23 12:09] LABS: ABSOLUTE BASOPHILS 0.1 thou/uL (0.0-0.2); ABSOLUTE EOSINOPHILS 0.4 thou/uL (0.0-0.7); ABSOLUTE LYMPHOCYTES 2.8 thou/uL (0.8-5.3); ABSOLUTE MONOCYTES 0.9 thou/uL (0.0-1.2); ABSOLUTE NEUTROPHILS 4.9 thou/uL (1.6-8.1); BASOPHILS 1.4 %; EOSINOPHILS 4.1 %; HEMATOCRIT 36.2 % (37.0-47.0); HEMOGLOBIN 12.2 gm/dL (12.0-15.0); LYMPHOCYTES 30.6 %; MCH 29.9 pg (26.0-34.0); MCHC 33.6 g/dL (28.0-37.0); MCV 88.8 fL (80.0-100.0); MONOCYTES 9.5 %; MPV 7.9 fl. (7.2-11.1); NUCLEATED RBCS 0 /100WBC; PLATELET COUNT* 265 thou/uL (150-400); POLYS 54.4 %; RBC 4.07 mil/uL (4.20-5.00); RDW-CV 15.3 % (10.5-14.5); WBC 9.1 thou/uL (4.0-11.0)
[2018-09-23 12:13] LABS: CALCIUM 8.4 mg/dL (8.5-10.1); CREATININE 1.3 mg/dL (0.6-1.3); POTASSIUM 5.2 mmol/L (3.5-5.1)
[2018-09-23 12:14] LABS: INR 0.9; PROTIME 9.7 Seconds (9.20-11.50)
[2018-09-23 12:18] LABS: TOTAL BILIRUBIN 0.4 mg/dL (<0.1-1.0); TOTAL PROTEIN 6.9 g/dL (6.4-8.2)
[2018-09-23] MEDS ORDERED: CLEOCIN HCL300 MG PO (13:15)
[2018-09-23] MEDS ORDERED: HYDROCODON-ACE1 EAC7 PO (13:15)
[2018-09-23 13:25] VITALS: BP 122/42
== END 2018-09-23 13:29 | disposition home or self-care (01) ==
LOC: M.ERS 11:07
PROVIDERS: Emergency Medicine
DX: T82.847A Pain due to cardiac prosthetic devices, implants and grafts, initial encounter (principal); I10 Essential (primary) hypertension; Z90.49 Acquired absence of other specified parts of digestive tract; Z90.710 Acquired absence of both cervix and uterus

== ENCOUNTER → 2019-12-17 | Outpatient (CLI) | payer MEDICARE, OTHER ==
[~2019-12-17] MED LIST changes: +CLEOCIN HCL300 MG PO; +HYDROCODON-ACE1 EAC7 PO
[2019-12-17 13:25] LABS: CREATININE 1.2 mg/dL (0.6-1.3)
--- NOTE | 2019-12-17 16:12 | 2DMMODE ---
[place] [address] 2 D/M-MODE ECHOCARDIOGRAM Name: VICKY ZELAYA Janelle Room: [facility]#: [id number] Admission: 12/17/19 Attend Phys: Francesco Gray, Discharge: Date of : 55 Date of Service: 12/17/19 1611 Report #: [id number] THIS REPORT FOR: cc: Andres Lugo MD, Matthew W. MD Blick, David R. MD [facility] ~ APPROVED REPORT Study performed: 12/17/2019 13:49:07 EXAM: Comprehensive 2D, Doppler, and color-flow Echocardiogram Patient Location: Out-Patient BSA: 1.86 HR: 69 bpm BP: 118/68 mmHg Other Information Study Quality: Good Indications Aortic Valve Disease 2D Dimensions IVSd: 10.94 (7-11mm) LVOT Diam: 15.26 (18-24mm) LVDd: 39.26 mm PWd: 9.52 (7-11mm) Ascending Ao: 30.90 (22-36mm) LVDs: 21.56 (25-40mm) Aortic Root: 22.46 mm Volumes Left Atrial Volume (Systole) LA ESV Index: 19.50 mL/m2 Aortic Valve AoV Peak Zack.: 1.38 m/s AO Peak Gr.: 7.63 mmHg LVOT Max P.05 mmHg AO Mean Gr.: 4.05 mmHg LVOT Mean P.49 mmHg LVOT Max V: 0.87 m/s AO V2 VTI: 30.64 cm LVOT Mean V: 0.55 m/s LARISA (VTI): 1.16 cm2 LVOT V1 VTI: 19.44 cm AI [place]: 2.80 m/s2 AI PHT: 449.94 [place] [address] 2 D/M-MODE ECHOCARDIOGRAM Name: VICKY ZELAYA Room: [facility]#: [id number] Admission: 12/17/19 Attend Phys: Francesco Gray, Discharge: Date of : 55 Date of Service: 12/17/19 1611 Report #: [id number] Mitral Valve E/A Ratio: 1.11 MV Decel. Time: 180.26 ms MV E Max Zack.: 0.76 m/s MV PHT: 52.28 ms MVA (PHT): 4.21 cm2 TDI E/Lateral E': 6.91 E/Medial E': 6.91 Medial E' Zack.: 0.11 m/s Lateral E' Zack.: 0.11 m/s Pulmonary Valve PV Peak Zack.: 0.71 m/s PV Peak Gr.: 2.03 mmHg Tricuspid Valve RAP Estimate: 5.00 mmHg TR Peak Gr.: 33.66 mmHg RVSP: 38.66 mmHg PA Pressure: 38.66 mmHg Left Ventricle The left ventricle is normal size. There is normal LV segmental wall motion. There is normal left ventricular wall thickness. Left ventricular systolic function is normal. The left ventricular ejection fraction is within the normal range. LVEF is 60-65%. Right Ventricle The right ventricle is normal size. The right ventricular systolic function is normal. Atria The left atrium size is normal. The right atrium size is normal. Aortic Valve The Aortic valve is sclerotic. Moderate aortic regurgitation. There is no aortic valvular stenosis. Mitral Valve The mitral valve is normal in structure. Trace to mild mitral regurgitation. No evidence of mitral valve stenosis. Tricuspid Valve The tricuspid valve is normal in structure. There is mild tricuspid valve regurgitation noted. estimated pa pressure 40 [place] [address] 2 D/M-MODE ECHOCARDIOGRAM Name: VICKY ZELAYA Janelle Room: [facility]#: [id number] Admission: 12/17/19 Attend Phys: Francesco Gray, Discharge: Date of : 55 Date of Service: 12/17/19 1611 Report #: [id number] Pulmonic Valve Pulmonic valve is not well visualized. There is no pulmonic valvular regurgitation. Great Vessels The aortic root is normal in size. IVC is normal in size and collapses >50% with inspiration. Pericardium There is no pericardial effusion. <Conclusion> LVEF is 60-65%. Moderate aortic regurgitation. Trace to mild mitral regurgitation. There is mild tricuspid valve regurgitation noted. estimated pa pressure 40 mm Hg <ELECTRONICALLY SIGNED> By: Isrrael Amezcua MD, FACC 12/17/19 161 161 161 Isrrael Amezcua MD, FACC /INF
== END ==
LOC: M.CRD 12-02 10:51 → M.LAB 13:00 → M.CRD 14:00
PROVIDERS: ATTEND Internal Medicine Cardiovascular Disease
DX: Z01.812 Encounter for preprocedural laboratory examination (principal); I71.2 Thoracic aortic aneurysm, without rupture; I08.3 Combined rheumatic disorders of mitral, aortic and tricuspid valves; K42.0 Umbilical hernia with obstruction, without gangrene; M43.28 Fusion of spine, sacral and sacrococcygeal region; I25.10 Atherosclerotic heart disease of native coronary artery without angina pectoris; I77.1 Stricture of artery

== ENCOUNTER 2020-09-09 17:57 | Inpatient (IN) | payer MEDICARE, OTHER ==
[~2020-09-09] VITALS: Ht 167.6 cm; Wt 74.8 kg
[2020-09-09 18:27] VITALS: BP 142/122
[2020-09-09 18:59] LABS: URINE BILIRUBIN NEGATIVE (Negative); URINE BLOOD NEGATIVE (Negative); URINE CLARITY CLEAR; URINE COLOR YELLOW; URINE GLUCOSE-RANDOM NEGATIVE (Negative); URINE KETONES NEGATIVE (Negative); URINE LEUKOCYTES-REFLEX NEGATIVE (Negative); URINE NITRITE-REFLEX NEGATIVE (Negative); URINE PROTEIN NEGATIVE (Negative); URINE SPECIFIC GRAVITY 1.015 (1.005-1.030); URINE UROBILINOGEN 0.2 E.U./dl (0.2-1.0)
[2020-09-09 19:11] LABS: ABSOLUTE BASOPHILS 0.1 thou/uL (0.0-0.2); ABSOLUTE EOSINOPHILS 0.1 thou/uL (0.0-0.7); ABSOLUTE LYMPHOCYTES 2.2 thou/uL (0.8-5.3); ABSOLUTE MONOCYTES 0.9 thou/uL (0.0-1.2); BASOPHILS 0.9 %; EOSINOPHILS 0.8 %; HEMATOCRIT 42.8 % (37.0-47.0); HEMOGLOBIN 14.4 gm/dL (12.0-15.0); LYMPHOCYTES 23.6 %; MCH 30.9 pg (26.0-34.0); MCHC 33.7 g/dL (28.0-37.0); MCV 91.9 fL (80.0-100.0); MONOCYTES 10.1 %; MPV 8.3 fl. (7.2-11.1); NUCLEATED RBCS 0 /100WBC; PLATELET COUNT* 254 thou/uL (150-400); POLYS 64.6 %; RBC 4.66 mil/uL (4.20-5.00); RDW-CV 15.2 % (10.5-14.5); WBC 9.2 thou/uL (4.0-11.0)
[2020-09-09 19:19] LABS: CALCIUM 9.4 mg/dL (8.5-10.1); POTASSIUM 4.3 mmol/L (3.5-5.1)
[2020-09-09 19:24] LABS: ALBUMIN 3.5 g/dL (3.4-5.0); TOTAL BILIRUBIN 0.4 mg/dL (<0.1-1.0); TOTAL PROTEIN 7.9 g/dL (6.4-8.2)
[2020-09-09 21:45] VITALS: BP 152/59
[2020-09-09 23:59] VITALS: BP 148/58
[2020-09-10 04:23] LABS: HEMATOCRIT 39.4 % (37.0-47.0); HEMOGLOBIN 13.1 gm/dL (12.0-15.0); MCH 30.6 pg (26.0-34.0); MCHC 33.2 g/dL (28.0-37.0); MCV 92.1 fL (80.0-100.0); MPV 8.2 fl. (7.2-11.1); RBC 4.27 mil/uL (4.20-5.00); RDW-CV 15.4 % (10.5-14.5); WBC 8.9 thou/uL (4.0-11.0)
[2020-09-10 06:12] LABS: CALCIUM 8.5 mg/dL (8.5-10.1); POTASSIUM 3.4 mmol/L (3.5-5.1)
[2020-09-10 08:00] VITALS: BP 123/45
--- NOTE | 2020-09-10 10:52 | EKG ---
[place] [address] ELECTROCARDIOGRAM REPORT Name: VICKY ZELAYA Room: [address] ADM IN .R.#: [id number] Admission: 09/09/20 Attend Phys: Lolita Cota Discharge: Date of : 55 Date of Service: 09/09/202106 Report #: [id number] THIS REPORT FOR: //name// 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: AT : 1955 Requested By: Marce Oro Order Number: [id number] MD: Isrrael Amezcua Measurements Intervals [place] Rate: 69 P: 78 [place]: 162 QRS: 71 QRSD: 117 T: 61 QT: 415 QTc: 445 Interpretive Statements Sinus rhythm Nonspecific intraventricular conduction delay Baseline wander in lead(s) III,aVF Compared to ECG 09/15/2018 16:05:08 no change Electronically Signed On 09-10-2020 10:52:27 CDT by Isrrael Amezcua [email or web address] <ELECTRONICALLY SIGNED> By: Isrrael Amezcua MD, [facility] 09/10/20 1052 06 06 Isrrael Amezcua MD, FAC /EPI
[2020-09-10 16:00] VITALS: BP 152/57
[2020-09-10 20:28] VITALS: BP 125/61
[2020-09-11 05:46] LABS: HEMATOCRIT 38.7 % (37.0-47.0); HEMOGLOBIN 12.8 gm/dL (12.0-15.0); MCH 30.5 pg (26.0-34.0); MCV 92.3 fL (80.0-100.0); MPV 8.7 fl. (7.2-11.1); RBC 4.19 mil/uL (4.20-5.00); RDW-CV 15.1 % (10.5-14.5); WBC 9.4 thou/uL (4.0-11.0)
[2020-09-11 05:52] LABS: CALCIUM 8.5 mg/dL (8.5-10.1); CREATININE 0.9 mg/dL (0.6-1.3); POTASSIUM 3.8 mmol/L (3.5-5.1)
[2020-09-11 07:03] LABS: MAGNESIUM 1.5 mg/dL (1.8-2.4)
[2020-09-11 10:59] VITALS: BP 146/56
[2020-09-11 17:06] VITALS: BP 155/54
[2020-09-11 19:53] VITALS: BP 139/58
[2020-09-12 05:42] LABS: HEMATOCRIT 35.6 % (37.0-47.0); MCH 30.9 pg (26.0-34.0); MCHC 33.8 g/dL (28.0-37.0); MCV 91.5 fL (80.0-100.0); MPV 8.8 fl. (7.2-11.1); RBC 3.89 mil/uL (4.20-5.00); RDW-CV 15.2 % (10.5-14.5); WBC 9.5 thou/uL (4.0-11.0)
[2020-09-12 05:50] LABS: CALCIUM 8.2 mg/dL (8.5-10.1); POTASSIUM 3.5 mmol/L (3.5-5.1)
[2020-09-12 05:56] LABS: ALBUMIN 2.7 g/dL (3.4-5.0); CALCIUM 8.2 mg/dL (8.5-10.1); MAGNESIUM 1.5 mg/dL (1.8-2.4); POTASSIUM 3.5 mmol/L (3.5-5.1); TOTAL BILIRUBIN 0.4 mg/dL (<0.1-1.0); TOTAL PROTEIN 6.6 g/dL (6.4-8.2)
[2020-09-12 08:30] VITALS: BP 145/52
[2020-09-12 12:44] VITALS: BP 145/52
== END 2020-09-12 15:03 | disposition home or self-care (01) | DRG 389 ==
LOC: M.ERS 17:57 → M.TBA-ER 21:09 → M.ORTHSURG 21:09
PROVIDERS: Family Medicine; Internal Medicine; Physician Assistant; Surgery; ADMIT Internal Medicine; ATTEND Internal Medicine
PROC: 0D9670Z Drainage of Stomach with Drainage Device, Via Natural or Artificial Opening (ICD-10-PCS; principal; 2020-09-10)
DX: K56.600 Partial intestinal obstruction, unspecified as to cause (principal); E44.1 Mild protein-calorie malnutrition; M19.90 Unspecified osteoarthritis, unspecified site; I10 Essential (primary) hypertension; K21.9 Gastro-esophageal reflux disease without esophagitis; M62.838 Other muscle spasm; E87.6 Hypokalemia; Z20.822 Contact with and (suspected) exposure to COVID-19; Z95.5 Presence of coronary angioplasty implant and graft; I25.2 Old myocardial infarction; Z90.49 Acquired absence of other specified parts of digestive tract; Z90.710 Acquired absence of both cervix and uterus; Z79.82 Long term (current) use of aspirin; Z79.899 Other long term (current) drug therapy; Z98.1 Arthrodesis status; Z68.26 Body mass index [BMI] 26.0-26.9, adult

== ENCOUNTER → 2020-12-01 | Outpatient (CLI) | payer MEDICARE, OTHER ==
[2020-12-01 14:03] LABS: HEMATOCRIT 40.3 % (37.0-47.0); HEMOGLOBIN 13.9 gm/dL (12.0-15.0); MCH 31.4 pg (26.0-34.0); MCHC 34.5 g/dL (28.0-37.0); MPV 8.2 fl. (7.2-11.1); RBC 4.43 mil/uL (4.20-5.00); RDW-CV 15.5 % (10.5-14.5); WBC 10.6 thou/uL (4.0-11.0)
== END ==
LOC: M.LAB 13:48
PROVIDERS: ATTEND Internal Medicine Cardiovascular Disease
DX: I25.10 Atherosclerotic heart disease of native coronary artery without angina pectoris (principal); I10 Essential (primary) hypertension; E78.00 Pure hypercholesterolemia, unspecified

== ENCOUNTER → 2021-05-09 | Outpatient (CLI) | payer MEDICARE, OTHER | LOC: M.LAB 14:28 | PROVIDERS: ATTEND Internal Medicine Cardiovascular Disease | DX: I10 Essential (primary) hypertension (principal); I25.10 Atherosclerotic heart disease of native coronary artery without angina pectoris; I35.1 Nonrheumatic aortic (valve) insufficiency ==